=== PATIENT | male | born 1955 | race Caucasian/White ===

== ENCOUNTER 2016-09-12 12:25 | Emergency (ER) | payer OTHER ==
[2016-09-12] MEDS ORDERED: 0.9 % SODIUM CHLORIDE 1,000 ML IV ONE ×3 (12:41→14:07)
[2016-09-12] MEDS ORDERED: ONDANSETRON HCL/PF 4 MG/ 2ML VIAL ONE (12:55)
[2016-09-12] MEDS ORDERED: ONDANSETRON HCL/PF 4 MG/ 2ML VIAL IVP ONE (13:00)
--- NOTE | 2016-09-12 13:02 | ED Physician Documentation ---
General Adult - HISTORIAN Historian: patient - HPI Stated Complaint: Nausea/Vomiting Chief Complaint: General Adult Additional Information: Began to vomit at 0100 today and this has continued. Urine x 2 since 0100 and this is less than his usual. Low abdominal pain that is sharp and feels like he has been punched. - ROS CONST: denies: fever - PAST HX Past History: other (NIDDM, neuropathy) Surgeries/Procedures: other (abd herniorraphy with mesh placement) - VITAL SIGNS Vital Signs: Vital Signs Temp Pulse Resp BP Pulse Ox 112 H 20 169/99 98 09/12/16 12:25 09/12/16 12:25 09/12/16 12:25 09/12/16 12:25 <BHAVYA OWENS - Last Filed: 09/12/16 14:12> - PAST HX Past History: hypertension, other Other History: diabetes Type 2, other (HLD) Surgeries/Procedures: other - SOCIAL HX Smoking History: cigarettes - FAMILY HX Family History: No - VITAL SIGNS Vital Signs: Vital Signs Temp Pulse Resp BP Pulse Ox 112 H 20 169/99 98 09/12/16 12:25 09/12/16 12:25 09/12/16 12:25 09/12/16 12:25 - REVIEWED ASSESSMENTS Nursing Assessment Reviewed: Yes Vitals Reviewed: Yes <VIVEK ABREU - Last Filed: 09/12/16 18:21> - PAST HX Allergies/Adverse Reactions: Allergies Allergy/AdvReac Type Severity Reaction Status Date / Time Penicillins Allergy Intermediate Tongue Verified 09/12/16 12:35 Swelling codeine [Codeine] AdvReac Vomiting Verified 09/12/16 12:35 bee stings AdvReac Mild Dizziness Uncoded 05/18/16 19:19 Home Medications: Ambulatory Orders Medication Instructions Recorded Gabapentin 300 mg PO TID 05/18/16 Lisinopril [Zestril] 10 mg PO D 05/18/16 Metformin HCl [Glucophage] 1,000 [place] [address] 05/18/16 Simvastatin [Zocor] 20 mg PO HS 05/18/16 Promethazine HCl [Phenergan] 25 mg PO Q8H PRN #30 tablet 09/12/16 Progress - Progress Progress: Reviewed lab results results, old records reviewed LFTs improved since last visit. Encouraged patient to follow up with primary care regarding LFTs. Patient on statin. Patient able to keep down sprite while in ER, states his pain has resolved. Discussed signs and symptoms to return to ER. 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 <VIVEK ABREU - Last Filed: 09/12/16 18:21> ED Results Lab/Radiology - Orders Orders: ED Orders Category Date Time Status Place Saline Lock/IV Now Care 09/12/16 12:52 Active CBC/PLATELET/DIFF Routine Lab 09/12/16 Ordered CMP Routine Lab 09/12/16 Ordered URINALYSIS Routine Lab 09/12/16 Ordered 0.9 % Sodium Chloride [Normal Saline] 1,000 ml Med 09/12/16 12:41 Discontinued IV .STK-MED 0.9 % Sodium Chloride [Normal Saline] 1,000 ml Med 09/12/16 12:52 Active IV Q1H Ondansetron HCl/Pf [Zofran 4 mg/2 ml] Med 09/12/16 12:55 Discontinued 4 mg .ROUTE .STK-MED ONE <BHAVYA OWENS - Last Filed: 09/12/16 14:12> - Lab Results Lab Results: Lab Results 09/12/16 09/12/16 12:50 12:50 WBC 8.00 K/ul K/ul (4.00-12.00) RBC 5.21 M/ul H M/ul (3.90-5.20) Hgb 15.3 g/dL g/dL (12.0-18.0) Hct 47.4 % % (37.0-53.0) MCV 91.0 fl fl (80.0-100.0) MCH 29.4 pg pg (28.0-34.0) MCHC 32.3 g/dL g/dL (30.0-36.0) RDW 13.3 % % (11.3-14.3) Plt Count 126 K/mm3 L K/mm3 (130-400) Sodium 138 mmol/L mmol/L (136-145) Potassium 3.9 mmol/L mmol/L (3.5-5.0) Chloride 101 mmol/L mmol/L (98-110) Carbon Dioxide 29 mmol/L mmol/L (20-32) BUN 16 mg/dL mg/dL (10-26) Creatinine 1.0 mg/dL mg/dL (0.4-1.5) Estimated Creat Clear 82 Est GFR ( Amer) > 60 (60 - ) Est GFR (Non-Af Amer) > 60 (60 - ) Glucose 173 mg/dL H mg/dL (70-99) Calcium 9.9 mg/dL mg/dL (8.5-10.5) Total Bilirubin 1.1 mg/dL mg/dL (0.2-1.2) AST 61 U/L H U/L (0-41) ALT 51 U/L H U/L (0-45) Alkaline Phosphatase 87 U/L U/L (46-116) Total Protein 9.9 g/dL H g/dL (6.0-8.5) Albumin 5.5 g/dL g/dL (3.0-5.5) - Orders Orders: ED Orders Category Date Time Status Place Saline Lock/IV Now Care 09/12/16 12:52 Active CBC/PLATELET/DIFF Routine Lab 09/12/16 12:50 Completed CMP Routine Lab 09/12/16 12:50 Completed RBC/PLATELET MORPHOLOGY Routine Lab 09/12/16 12:50 Completed URINALYSIS Routine Lab 09/12/16 Ordered 0.9 % Sodium Chloride [Normal Saline] 1,000 ml Med 09/12/16 12:41 Discontinued IV .STK-MED 0.9 % Sodium Chloride [Normal Saline] 1,000 ml Med 09/12/16 12:52 Discontinued IV Q1H 0.9 % Sodium Chloride [Normal Saline] 1,000 ml Med 09/12/16 14:07 Active IV Q1H Morphine Sulfate [DepoDUR] Med 09/12/16 14:07 Discontinued 4 mg .ROUTE .STK-MED ONE Morphine Sulfate [DepoDUR] Med 09/12/16 14:07 Discontinued 4 mg IVP NOW ONE Ondansetron HCl/Pf [Zofran 4 mg/2 ml] Med 09/12/16 12:55 Discontinued 4 mg .ROUTE .STK-MED ONE Ondansetron HCl/Pf [Zofran 4 mg/2 ml] Med 09/12/16 13:00 Discontinued 4 mg IVP NOW ONE <VIVEK ABREU - Last Filed: 09/12/16 18:21> General Adult Physical Exam - PHYSICAL EXAM GENERAL APPEARANCE: [id number] N EENT: eye inspection normal, ENT inspection normal, pharynx normal, no signs of dehydration, DAX, no nystagmus, TM's nml RESPIRATORY: no resp distress, chest non-tender, breath sounds normal CVS: reg rate & rhythm, heart sounds normal, equal pulses, no murmur, no gallop , PMI nml, no JVD, no friction rub, 24 ABDOMEN: soft, no organomegaly, normal bowel sounds, no abdominal bruit, no distension, tenderness (with palpation) BACK: normal inspection, no CVA tenderness SKIN: normal color, warm/dry, NR, INT, PAL, DR EXTREMITIES: non-tender, normal range of motion, no evidence of injury, no edema , J, [employer] NEURO: oriented X3, CN's nml as tested, motor nml, sensation nml, mood/affect nml <VIVEK ABREU - Last Filed: 09/12/16 18:21> Discharge <BHAVYA OWENS - Last Filed: 09/12/16 14:12> Decision to Admit: NO Decision Time: 14:46 <VIVKE ABREU - Last Filed: 09/12/16 18:21> Clincal Impression: Nausea & vomiting Qualifiers: Vomiting type: unspecified Vomiting Intractability: non-intractable Qualified Code(s): R11.2 - Nausea with vomiting, unspecified Prescriptions: Promethazine HCl [Phenergan] 25 mg PO Q8H PRN #30 tablet PRN Reason: Nausea / Vomiting Referrals: Raji Watkins MD [Primary Care Provider] - 2 Days Home Medications: Ambulatory Orders Gabapentin 300 mg PO TID 05/18/16 Lisinopril [Zestril] 10 mg PO D 05/18/16 Metformin HCl [Glucophage] 1,000 [place] [id number] 05/18/16 Simvastatin [Zocor] 20 mg PO HS 05/18/16 Promethazine HCl [Phenergan] 25 mg PO Q8H PRN #30 tablet 09/12/16 Condition: Stable Disposition: 01 HOME, SELF-CARE
[2016-09-12 13:14] LABS: MEAN CORPUSCULAR HEMOGLOBIN 29.4 pg (28.0-34.0)
[2016-09-12 13:20] LABS: eGFR (African) > 60; eGFR (Non-African) > 60
[2016-09-12] MEDS ORDERED: MORPHINE SULFATE 4 MG/ML DISP.SYRIN ONE (14:07)
[2016-09-12] MEDS ORDERED: MORPHINE SULFATE 4 MG/ML DISP.SYRIN IVP ONE (14:07)
[2016-09-12 15:09] VITALS: BP 120/68
== END 2016-09-12 15:08 | disposition home or self-care (01) ==
LOC: ED 12:25
DX: R11.2 Nausea with vomiting, unspecified (principal)
CPT/HCPCS: 80053; 85025; 96361; 96374; 96375; 99283; J2270; J2405; J7030; S1016

== ENCOUNTER 2018-04-26 19:29 | Emergency (ER) | payer OTHER ==
--- NOTE | 2018-04-26 19:31 | ED Physician Documentation ---
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 Pt states that he has a hx of anemia and was seen at [facility] about 3 months ago and was given 5 units of blood, according to pt's report. Pt states that work-up did not explain his anemia very well. He reports that only small stomach ulcerations were found on EGD. Pt also had colonoscopy and other studies. Pt has not had chest pain. He report rapid breathing rate while walking. He has felt a little lightheaded. Pt report dark black stools a few days ago, but now has normal colored stools. Pt saw no cassidy blood with bm.) - ROS CONST: weakness EYES/ENT: none CVS/RESP: shortness of breath GI/: black stools MS/SKIN/LYMPH: none NEURO/PSYCH: other (mild lightheadedness) - PAST HX Past History: other (DM, HTN) Surgeries/Procedures: other (ortho surgery) Allergies/Adverse Reactions: Allergies Allergy/AdvReac Type Severity Reaction Status Date / Time Penicillins Allergy Intermediate Tongue Verified 04/26/18 19:45 Swelling codeine [Codeine] AdvReac Vomiting Verified 04/26/18 19:45 bee stings AdvReac Mild Dizziness Uncoded 04/26/18 19:45 Home Medications: Ambulatory Orders Medication Instructions Recorded Gabapentin 300 mg PO TID 05/18/16 Metformin HCl [Glucophage] 1,[place] [id number] 05/18/16 - SOCIAL HX Smoking History: non-smoker - FAMILY HX Family History: No - VITAL SIGNS Vital Signs: Vital Signs Temp Pulse Resp BP Pulse Ox 120/68 09/12/16 15:08 - REVIEWED ASSESSMENTS Nursing Assessment Reviewed: Yes Vitals Reviewed: Yes Progress - Progress Progress: CXR: No infiltrate, effusion or pneumothorax is present. Heart size, mediastinum and pulmonary vascularity are normal. IMPRESSION : No active pulmonary disease. NS 500 cc IVF Pt feeling a little better after fluid. Transfer to [facility]. Dr. Castillo. General Adult Physical Exam - PHYSICAL EXAM GENERAL APPEARANCE: mild distress EENT: pharynx normal NECK: normal inspection, supple RESPIRATORY: no resp distress, chest non-tender, breath sounds normal CVS: tachycardia ABDOMEN: soft, no organomegaly, normal bowel sounds RECTAL: normal exam, normal rectal tone, heme positive stool BACK: normal inspection, no CVA tenderness SKIN: warm/dry, normal color, other (no palor) EXTREMITIES: non-tender, normal range of motion, no evidence of injury, no edema NEURO: oriented X3, motor nml, sensation nml Discharge Clincal Impression: anemia, pos hemocult, GI bleed Referrals: Raji Watkins MD [Primary Care Provider] - Condition: Stable Disposition: XFER SHT-TRM HOSP Decision to Admit: NO Decision Time: 21:10
[2018-04-26] MEDS: 0.9 % SODIUM CHLORIDE 500 ML IV ONE (19:53)
[2018-04-26 20:07] LABS: BASOPHILS % 0.2 (0.0-1.5); EOSINOPHILS % 1.6 % (0.0-6.8); MONOCYTES % 23.1 % (0.0-11.0); NEUTROPHILS # 0.9 # k/uL (1.4-7.7)
[2018-04-26 20:09] LABS: MEAN CORPUSCULAR HEMOGLOBIN 15.6 pg (28.0-34.0); MEAN CORPUSCULAR VOLUME 83.2 fl (80.0-100.0)
--- NOTE | 2018-04-26 20:12 | Diagnostic Imaging Report ---
RAJINDER BENZ [facility] [address] [facility] [address] [address] Report Submission Date: Apr 26, 2018 8:10:00 PM CDT Patient Study Name: ALFIE KAHN Date: Apr 26, 2018 7:46:55 PM CDT Modality Type: DX Gender: M Description: CHEST : 51 Institution: [facility] Physician: RAJINDER BENZ Chest, AP portable HISTORY Tachycardia. FINDINGS No infiltrate, effusion or pneumothorax is present. Heart size, mediastinum and pulmonary vascularity are normal. IMPRESSION No active pulmonary disease. Electronically signed on Apr 26, 2018 8:10:00 PM CDT by: Trell BARROS
[2018-04-26 20:28] LABS: eGFR (African) > 60; eGFR (Non-African) > 60
[2018-04-26 21:52] VITALS: BP 129/66
== END 2018-04-26 21:45 | disposition short-term general hospital (02) ==
LOC: ED 19:29
DX: K92.2 Gastrointestinal hemorrhage, unspecified (principal); D64.9 Anemia, unspecified
CPT/HCPCS: 71045; 80053; 82272; 82550; 82553; 83880; 84484; 85025; 85379; J7060; 96365; S1016

== ENCOUNTER 2018-05-02 19:57 | Emergency (ER) | payer OTHER ==
--- NOTE | 2018-05-02 20:05 | ED Physician Documentation ---
General Adult - HISTORIAN Historian: patient - HPI Stated Complaint: weakness history of anemia Chief Complaint: General Adult Onset: days ago (2) Timing: still present Severity: mild Further Comments: yes (He states that he has had anemia that he felt was treated with a procedure. He had what the son was told was 5 arteries in his esophogus that were capped off. He states that he was discharged Tuesday afternoon. He states that he then has had increased weakness today and fatigue. He denies shortness of air. HE does have abdominal pain that he explains as lower. 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 denies: headache, fainting, difficulty with speech, anxiety, depression - PAST HX Past History: hypertension, other (DM ) Immunizations: UTD Allergies/Adverse Reactions: Allergies Allergy/AdvReac Type Severity Reaction Status Date / Time Penicillins Allergy Intermediate Tongue Verified 05/02/18 20:21 Swelling codeine [Codeine] AdvReac Vomiting Verified 05/02/18 20:21 bee stings AdvReac Mild Dizziness Uncoded 05/02/18 20:21 Home Medications: Ambulatory Orders Medication Instructions Recorded Gabapentin 300 mg PO PRN PRN 05/18/16 Metformin HCl [Glucophage] 1,[place] [id number] 05/18/16 - SOCIAL HX Smoking History: cigarettes Alcohol Use: none Drug Use: none - FAMILY HX Family History: No - VITAL SIGNS Vital Signs: Vital Signs Temp Pulse Resp BP Pulse Ox 129/66 04/26/18 21:45 - REVIEWED ASSESSMENTS Nursing Assessment Reviewed: Yes Vitals Reviewed: Yes Progress - Progress Progress: 2149: after discussion he states the abdominal pain was lower and this afternoon he states it has since "let up then now it is gone" He denies any current pain or shortness of breath. He does feel some fatigue. Discussed labs are improved. Plan to follow up with PCP in am and he is agreeable DG ED Results Lab/Radiology - Radiology Radiology Impressions: Chest the AP view Date of Exam: May 02, 2018. History: WEAKNESS, COUGH (Hx) / ITS.REASON Weakness Findings: Comparison is made with April 26, 2018. Borderline cardiomegaly is unchanged. There is a slight right lower lobe infiltrate or atelectasis. The trachea is midline and aortic arch contour is normal. The pulmonary vascularity is stable. Impression: Slight right lower lobe infiltrate or atelectasis. Electronically signed on May 02, 2018 9:31:43 PM CDT by: Hodan Daniels General Adult Physical Exam - PHYSICAL EXAM GENERAL APPEARANCE: no distress EENT: eye inspection normal NECK: normal inspection RESPIRATORY: no resp distress, chest non-tender, breath sounds normal CVS: reg rate & rhythm, heart sounds normal, no murmur ABDOMEN: soft, normal bowel sounds, no distension, non-tender SKIN: warm/dry, normal color EXTREMITIES: non-tender, normal range of motion, no evidence of injury, no edema NEURO: oriented X3, CN's nml as tested, motor nml, sensation nml, mood/affect nml, cognition normal Discharge Clincal Impression: Weakness Pneumonia Qualifiers: Pneumonia type: due to unspecified organism Laterality: right Lung location: upper lobe of lung Qualified Code(s): J18.1 - Lobar pneumonia, unspecified organism Referrals: Raji Watkins MD [Primary Care Provider] - 2 Days Comments: 1. Azithromycin 250 mg take 1 by mouth daily x 4 (loading dose given in ER) 2. Increase fluids 3. Rest 4. ProAir 90 mcg Take 1 by mouth every 4-6 hours as needed for cough 5. See PCP in 2-4 days - call in Am for follow up 6. Return to ER for any concerns Condition: Stable Disposition: 01 HOME, SELF-CARE Decision to Admit: NO Date of Decison to Admit: 05/02/18 Decision Time: 22:11
[2018-05-02] MEDS ORDERED: 0.9 % SODIUM CHLORIDE 1,000 ML IV ONE (20:36)
[2018-05-02 20:48] LABS: BASOPHILS % 0.5 (0.0-1.5); EOSINOPHILS % 0.7 % (0.0-6.8); MEAN CORPUSCULAR HEMOGLOBIN 24.6 pg (28.0-34.0); MEAN CORPUSCULAR VOLUME 83.8 fl (80.0-100.0); MONOCYTES % 4.6 % (0.0-11.0); NEUTROPHILS # 4.8 # k/uL (1.4-7.7)
[2018-05-02 21:15] LABS: eGFR (African) > 60; eGFR (Non-African) > 60
[2018-05-02] MEDS ORDERED: AZITHROMYCIN 250 MG TABLET PO ONE (22:16)
[2018-05-02 22:39] VITALS: BP 112/62
--- NOTE | 2018-05-03 06:38 | Diagnostic Imaging Report ---
WILFREDO WERNER [facility] [address] [facility] [address] Report Submission Date: May 02, 2018 9:31:43 PM CDT Patient Study Name: ALFIE KAHN Date: May 02, 2018 9:00:29 PM CDT Modality Type: DX Gender: M Description: CHEST : 51 Institution: [facility] Physician: WILFREDO WERNER Chest the AP view Date of Exam: May 02, 2018. History: WEAKNESS, COUGH (Hx) / ITS.REASON Weakness Findings: Comparison is made with April 26, 2018. Borderline cardiomegaly is unchanged. There is a slight right lower lobe infiltrate or atelectasis. The trachea is midline and aortic arch contour is normal. The pulmonary vascularity is stable. Impression: Slight right lower lobe infiltrate or atelectasis. Electronically signed on May 02, 2018 9:31:43 PM CDT by: Hodan BARROS
[2018-05-03 07:07] LABS: APPEARANCE,URINE CLEAR (CLEAR); COLOR,URINE AMBER (YELLOW)
[2018-05-03 07:08] LABS: OCCULT BLOOD,URINE NEGATIVE (NEGATIVE)
== END 2018-05-02 22:30 | disposition home or self-care (01) ==
LOC: ED 19:57
DX: J18.1 Lobar pneumonia, unspecified organism (principal)
CPT/HCPCS: 71045; 80053; 81002; 84484; 85025; 85610; J7030; 96365; S1016

== ENCOUNTER 2018-06-29 12:41 | Emergency (ER) | payer OTHER ==
[2018-06-29 13:37] LABS: MEAN CORPUSCULAR HEMOGLOBIN 25.7 pg (28.0-34.0)
[2018-06-29 13:38] LABS: SEGMENTED NEUTROPHILS % 44 % (39-79)
[2018-06-29 13:39] LABS: BASOPHILS % 0 % (0-2); EOSINOPHILS % 1 % (0-7); MONOCYTES % 10 % (0-11)
[2018-06-29 13:41] LABS: OVALOCYTES 1+ (NEGATIVE); PLT EST. EST. AGREES W/PLT CT
[2018-06-29 13:42] LABS: eGFR (Non-African) > 60
--- NOTE | 2018-06-29 14:16 | ED Physician Documentation ---
General Adult - HISTORIAN Historian: patient - HPI Stated Complaint: Slurred Speech/Numbness to Tongue Chief Complaint: General Adult Onset: hours (2) Timing: better Further Comments: yes (62 year old male patient presents with complaint of "numb tongue and episode of slurred speech". Patient reports he was Dr Watkins's office to be seen and was sent to ER for evaluation. Patient denies difficulty with movement, ambulated into ER. Family states patient's speech is improved since being at the office.) - ROS CONST: no problems, other (was started on propranolol 2 weeks ago. ) EYES/ENT: none CVS/RESP: none GI/: none MS/SKIN/LYMPH: none NEURO/PSYCH: numbness (tongue). denies: headache, fainting, dizziness, tingling, difficulty walking (of tongue), difficulty with speech, anxiety, depression, other - PAST HX Past History: hypertension Other History: diabetes Type 2, other (GERD) Allergies/Adverse Reactions: Allergies Allergy/AdvReac Type Severity Reaction Status Date / Time Penicillins Allergy Intermediate Tongue Verified 06/29/18 12:57 Swelling codeine [Codeine] AdvReac Vomiting Verified 06/29/18 12:57 bee stings AdvReac Mild Dizziness Uncoded 06/29/18 12:57 Home Medications: Ambulatory Orders Medication Instructions Recorded Metformin HCl [Glucophage] 1,[place] [address] 05/18/16 Propranolol HCl [Inderal] 10 mg PO BID #30 tablet 06/29/18 Propranolol HCl [Inderal] 20 mg PO BID 06/29/18 Rabeprazole Sodium [Aciphex] 20 mg PO DAILY 06/29/18 - SOCIAL HX Smoking History: non-smoker - FAMILY HX Family History: No - VITAL SIGNS Vital Signs: Vital Signs Temp Pulse Resp BP Pulse Ox 98.1 F 54 L 18 147/74 97 06/29/18 12:42 06/29/18 13:30 06/29/18 12:42 06/29/18 12:42 06/29/18 13:30 - REVIEWED ASSESSMENTS Nursing Assessment Reviewed: Yes Vitals Reviewed: Yes Progress - Progress Progress: Reviewed lab and CT scan results with patient. Questions answered answered. Family reports patient has been sleeping more, patient reports increased fatigue since starting propranolol. HR remained 50-55 while in ER. Will decrease propranolol to 10mg bid. Appointment made for Tuesday with Dr Morgan. Will start 81mg ASA po as plt count 78 today, will not start full dose. - Additional EKG/XRAY/Consults EKG #2: rhythm (SB, rate 52, no acute changes. ) ED Results Lab/Radiology - Lab Results Lab Results: Lab Results 06/29/18 06/29/18 06/29/18 13:00 13:00 13:00 WBC RBC Hgb Hct MCV MCH MCHC RDW Plt Count Seg Neutrophils % Band Neutrophils % Lymphocytes % Monocytes % Eosinophils % Basophils % Metamyelocytes % Myelocytes % Nucleated RBCs Reactive Lymphocytes Platelet Estimate Plt Morphology Comment Poikilocytosis Ovalocytes Schistocytes PT 11.8 Seconds H Seconds (9.4-11.6) INR 1.12 (0.9-1.2) Sodium 141 mmol/L mmol/L (136-145) Potassium 4.5 mmol/L mmol/L (3.5-5.1) Chloride 104 mmol/L mmol/L (98-107) Carbon Dioxide 22 mmol/L mmol/L (22-30) BUN 14 mg/dL mg/dL (9-20) Creatinine 0.80 mg/dL mg/dL (0.66-1.25) Estimated Creat Clear 95 Est GFR ( Amer) > 60 (60 - ) Est GFR (Non-Af Amer) > 60 (60 - ) Glucose 184 mg/dL H mg/dL (74-106) Calcium 9.2 mg/dL mg/dL (8.4-10.2) Total Bilirubin 0.8 mg/dL mg/dL (0.2-1.3) AST 64 U/L H U/L (15-46) ALT 39 U/L U/L (13-69) Alkaline Phosphatase 87 U/L U/L (38-126) Creatine Kinase 37 U/L L U/L (55-170) Troponin I < 0.03 ng/mL L ng/mL (0.03-0.06) Total Protein 9.1 g/dL H g/dL (6.3-8.2) Albumin 4.3 g/dL g/dL (3.5-5.0) 06/29/18 13:00 WBC 4.40 K/ul K/ul (4.00-12.00) RBC 4.65 M/ul M/ul (3.90-5.20) Hgb 12.0 g/dL g/dL (12.0-18.0) Hct 37.5 % % (37.0-53.0) MCV 81.0 fl fl (80.0-100.0) MCH 25.7 pg L pg (28.0-34.0) MCHC 31.9 g/dL g/dL (30.0-36.0) RDW 24.1 % H % (11.3-14.3) Plt Count 79 K/mm3 L K/mm3 (130-400) Seg Neutrophils % 44 % % (39-79) Band Neutrophils % 3 % % (0-12) Lymphocytes % 39 % % (16-50) Monocytes % 10 % % (0-11) Eosinophils % 1 % % (0-7) Basophils % 0 % % (0-2) Metamyelocytes % 0 % % (0-0) Myelocytes % 2 % H % (0-0) Nucleated RBCs 1 % H % (0-0) Reactive Lymphocytes 0 % % (0-5) Platelet Estimate Est. agrees w/plt ct Plt Morphology Comment Abnormal H (NORMAL) Poikilocytosis 2+ H (NEGATIVE) Ovalocytes 1+ H (NEGATIVE) Schistocytes 1+ H (NEGATIVE) PT INR Sodium Potassium Chloride Carbon Dioxide BUN Creatinine Estimated Creat Clear Est GFR ( Amer) Est GFR (Non-Af Amer) Glucose Calcium Total Bilirubin AST ALT Alkaline Phosphatase Creatine Kinase Troponin I Total Protein Albumin - Radiology Radiology Impressions: CT BRAIN WITHOUT CONTRAST HISTORY: Slurred speech and tongue numbness TECHNIQUE: Axial images were obtained from the skullbase to the vertex without IV contrast. FINDINGS: The ventricular system, basilar cisterns and cortical sulci are prominent compatible with age-related cortical volume loss. Mild patchy areas of periventricular to subcortical white matter lucency are present consistent with mild small vessel ischemic disease. There is no positive mass effect or intra/extra-axial hemorrhage. Visualized paranasal sinuses and mastoid air cells are clear. The calvarium is intact. IMPRESSION: Age-related cortical volume loss with mild small vessel ischemic disease. No acute intracranial abnormality. Electronically signed on Jun 29, 2018 1:22:46 PM CDT by: Priti Gaston - Orders Orders: ED Orders Category Date Time Status Continuous EKG monitoring Q30M Care 06/29/18 12:50 Active Continuous Pulse Oximetry Q30M Care 06/29/18 12:[address] IV Lock 1T Care 06/29/18 12:[address] BRAIN W/O CONTRAST Stat Exams 06/29/18 Ordered CBC/PLATELET/DIFF Routine Lab 06/29/18 13:00 Completed CMP Routine Lab 06/29/18 13:00 Completed CREATINE KINASE Routine Lab 06/29/18 13:00 Completed PT-INR Stat Lab 06/29/18 13:00 Completed RBC/PLATELET MORPHOLOGY Routine Lab 06/29/18 13:00 Completed TROPONIN I (cTnI) Stat Lab 06/29/18 13:00 Completed URINALYSIS Stat Lab 06/29/18 Ordered Chem Sticks Med 06/29/18 13:15 Discontinued 1 each STAT STA EKG WITH COMPARISON Stat Ther 06/29/18 12:50 Ordered General Adult Physical Exam - PHYSICAL EXAM GENERAL APPEARANCE: [id number] N EENT: eye inspection normal, ENT inspection normal, pharynx normal, no signs of dehydration, DAX, no nystagmus, TM's nml, other (speech with very slight slur; clears with reading. 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: oriented X3 (NIH scale 0), CN's nml as tested, motor nml, sensation nml, mood/affect nml Discharge Clincal Impression: Bradycardia, TIA (transient ischemic attack) Fatigue Qualifiers: Fatigue type: other Qualified Code(s): R53.83 - Other fatigue Prescriptions: Propranolol HCl [Inderal] 10 mg PO BID #30 tablet Referrals: Raji Watkins MD [Primary Care Provider] - 2 Days Additional Instructions: Decrease your propranolol dose - a new prescription was sent to the pharmacy Start 81mg aspirin daily Follow up Tuesday with Dr Watkins at 10:45 am Return to Er if: Difficulty with your speech increases Cannot move your arm or leg Face droops on one side Condition: Stable Disposition: 01 HOME, SELF-CARE Decision to Admit: NO Decision Time: 14:16
[2018-06-29 14:29] VITALS: BP 125/72
--- NOTE | 2018-06-29 21:57 | Diagnostic Imaging Report ---
VIVEK NGUYEN (CONTRACT ACCOUNTANT) - ER [facility] [address] [facility] [address] Report Submission Date: Jun 29, 2018 1:22:46 PM CDT Patient Study Name: ALFIE KAHN Date: Jun 29, 2018 1:07:37 PM CDT Modality Type: CT\SR Gender: M Description: CT BRAIN W/O CONTRAST : 51 Institution: [facility] Physician: VIVEK NGUYEN) - ER CT BRAIN WITHOUT CONTRAST HISTORY: Slurred speech and tongue numbness TECHNIQUE: Axial images were obtained from the skullbase to the vertex without IV contrast. FINDINGS: The ventricular system, basilar cisterns and cortical sulci are prominent compatible with age-related cortical volume loss. Mild patchy areas of periventricular to subcortical white matter lucency are present consistent with mild small vessel ischemic disease. There is no positive mass effect or intra/extra-axial hemorrhage. Visualized paranasal sinuses and mastoid air cells are clear. The calvarium is intact. IMPRESSION: Age-related cortical volume loss with mild small vessel ischemic disease. No acute intracranial abnormality. Electronically signed on Jun 29, 2018 1:22:46 PM CDT by: Priti BARROS
== END 2018-06-29 14:26 | disposition home or self-care (01) ==
LOC: ED 12:41
DX: R00.1 Bradycardia, unspecified (principal); G45.9 Transient cerebral ischemic attack, unspecified; R53.83 Other fatigue; R47.81 Slurred speech
CPT/HCPCS: 36415; 70450; 80053; 82550; 84484; 85025; 85610; S1016

== ENCOUNTER 2019-09-05 21:04 | Emergency (ER) | payer OTHER ==
[2019-09-05 21:22] VITALS: BP 142/78
--- NOTE | 2019-09-05 21:26 | ED Physician Documentation ---
General Adult - HISTORIAN Historian: patient - HPI Stated Complaint: Fever with nausea/emesis (x2) Chief Complaint: General Adult Additional Information: Patient presents to ED with sneezing and chills starting around 1600 today. At 2100 he vomited twice so he came to the ER. Upon presentation he had a low grade fever 100.1 and denies any nausea. He denies shortness of breath, chest pain, abdominal pain or diarrhea. Onset: hours (1) Timing: gone now Severity: mild - ROS CONST: chills EYES/ENT: nasal drainage CVS/RESP: denies: chest pain, shortness of breath GI/: vomiting, nausea. denies: abdominal pain, diarrhea MS/SKIN/LYMPH: none NEURO/PSYCH: denies: headache - PAST HX Past History: other (esophageal varices ) Other History: diabetes Type 2 Allergies/Adverse Reactions: Allergies Allergy/AdvReac Type Severity Reaction Status Date / Time Penicillins Allergy Intermediate Tongue Verified 09/05/19 21:35 Swelling codeine [Codeine] AdvReac Vomiting Verified 09/05/19 21:35 bee stings AdvReac Mild Dizziness Uncoded 09/05/19 21:35 Home Medications: Ambulatory Orders Medication Instructions Recorded metFORMIN HCl [Glucophage] 1,[place] [address] 05/18/16 Propranolol HCl [Inderal] 10 mg PO BID #30 tablet 06/29/18 Propranolol HCl [Inderal] 20 mg PO BID 06/29/18 Rabeprazole Sodium [Aciphex] 20 mg PO DAILY 06/29/18 Ondansetron HCl Rapdis [Zofran Odt] 4 mg PO Q8 PRN #20 tab 09/05/19 - SOCIAL HX Smoking History: non-smoker Alcohol Use: none Drug Use: none - FAMILY HX Family History: No - VITAL SIGNS Vital Signs: Vital Signs Temp Pulse Resp BP Pulse Ox 100 F H 94 H 14 142/78 98 09/05/19 21:04 09/05/19 21:04 09/05/19 21:04 09/05/19 21:04 09/05/19 21:04 - REVIEWED ASSESSMENTS Nursing Assessment Reviewed: Yes Vitals Reviewed: Yes ED Results Lab/Radiology - Lab Results Lab Results: Influenza A/B - negative General Adult Physical Exam - PHYSICAL EXAM GENERAL APPEARANCE: no distress EENT: DAX NECK: supple RESPIRATORY: no resp distress, breath sounds normal CVS: reg rate & rhythm, other (RRR) ABDOMEN: soft, normal bowel sounds, non-tender BACK: normal inspection, no CVA tenderness SKIN: warm/dry, normal color EXTREMITIES: non-tender, no edema NEURO: oriented X3, motor nml, mood/affect nml Discharge Clincal Impression: Gastroenteritis Prescriptions: Ondansetron HCl Rapdis [Zofran Odt] 4 mg PO Q8 PRN #20 tab PRN Reason: nausea/vomiting Referrals: Raji Watkins MD [Primary Care Provider] - 2 Days Additional Instructions: 1. Zofran every 8 hours as needed for nausea/vomiting 2. Tylenol 650mg every 4 hours as needed for fever 3. Small sips of water every 15-20 minutes. Advance as tolerated. 4. Imodium as needed if diarrhea begins 5. Follow up with PCP within 1 week 6. Return to ER for new or worsening symptoms Condition: Stable Disposition: 01 HOME, SELF-CARE Decision to Admit: NO Date of Decison to Admit: 09/05/19 Decision Time: 21:45
[2019-09-05] MEDS ORDERED: IBUPROFEN 200 MG TABLET PO ONE (21:27)
[2019-09-05] MEDS ORDERED: ONDANSETRON HCL 4 MG TAB.RAPDIS PO ONE ×2 (21:27→21:41)
== END 2019-09-05 21:49 | disposition home or self-care (01) ==
LOC: ED 21:04
DX: K52.9 Noninfective gastroenteritis and colitis, unspecified (principal)
CPT/HCPCS: 87400; 99283; 99284; A9270